=== PATIENT | female | born 1980 | race Caucasian/White ===

== ENCOUNTER 2021-04-12 14:38 | Outpatient (CLI) | payer OTHER, SELFPAY ==
--- NOTE | 2021-04-12 14:46 | MM_ITS ---
WS: [id number] BILATERAL DIGITAL SCREENING MAMMOGRAPHY WITH CAD CLINICAL INFORMATION: SCREENING HISTORY: Screening mammogram. No current complaints. COMPARISON: TECHNIQUE: Bilateral CC and MLO views. FINDINGS: Scattered fibroglandular densities bilaterally. Scattered incidental punctate calcifications. No susp icious focal mass, asymmetry, calcifications, or architectural distortion. No evidence of malignancy. MM/[id number] IMPRESSION: BI-RADS: 2-Benign FOLLOW UP: 1 Year Follow-up Recommend return to annual screening mammography.
== END 2021-04-12 14:39 | disposition home or self-care (01) ==
LOC: RADSHAW 14:44
PROVIDERS: Family Provider Family Medicine; PCP Family Medicine; Visit Provider Family Medicine
DX: Z12.31 Encounter for screening mammogram for malignant neoplasm of breast (principal)
CPT/HCPCS: 77067

== ENCOUNTER 2022-05-09 07:27 | Outpatient (CLI) | payer OTHER, SELFPAY ==
--- NOTE | 2022-05-09 07:48 | MM_ITS ---
WS: [id number] Bilateral screening 3D tomosynthesis digital mammogram, 05/09/2022 Clinical Data: SCREENING Comparison: 04/12/2021, 03/17/2017. Findings: The breast parenchymal pattern shows hyperglandular tissue. No spiculated masses or clustered calcifi cations are seen. There are no secondary signs of carcinoma. There is a lymph node in the left axilla . MM/[id number] Impression: 1. Negative bilateral mammogram unchanged. 2. Recommend annual screening mammograms. BIRADS: 1-Negative FOLLOW UP: 1 Year Follow-up The CAD cashier or checker stock clerk was used.
== END 2022-05-09 07:28 | disposition home or self-care (01) ==
PROVIDERS: PCP Family Medicine; Visit Provider Family Medicine
DX: Z12.31 Encounter for screening mammogram for malignant neoplasm of breast (principal)
CPT/HCPCS: 77063; 77067